=== PATIENT | female | born 1960 | race Asian ===

== ENCOUNTER 2017-09-05 19:06 | Emergency (ER) | payer BC, OTHER ==
[2017-09-05 19:24] VITALS: BP 144/70; PULSE 61; TEMP 98.1; BMI 24.4
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
[2017-09-05] MEDS ORDERED: IBUPROFEN 400 MG TABLET (FP) PO ONE ×2 (20:35→20:39)
== END 2017-09-05 22:55 | disposition home or self-care (01) ==
LOC: JER 19:06
DX: G44.319 Acute post-traumatic headache, not intractable (principal); I10 Essential (primary) hypertension; E11.9 Type 2 diabetes mellitus without complications; E78.00 Pure hypercholesterolemia, unspecified
CPT/HCPCS: 70450-TC; 70486-TC; 99281-25

== ENCOUNTER 2024-08-09 04:11 | Day surgery (SDC) | payer BC ==
[2024-08-07 11:55] VITALS: BMI 26.5
[2024-08-09 09:36] VITALS: TEMP 97.8
[2024-08-09 10:17] VITALS: BP 150/67; PULSE 59; RESP 18
== END 2024-08-09 10:26 | disposition home or self-care (01) ==
LOC: JASU-ENDO 04:11
PROVIDERS: ATTEND Internal Medicine Gastroenterology
PROC: 0DB98ZX Excision of Duodenum, Via Natural or Artificial Opening Endoscopic, Diagnostic (ICD-10-PCS; 2024-08-09)
PROC: 0DB78ZX Excision of Stomach, Pylorus, Via Natural or Artificial Opening Endoscopic, Diagnostic (ICD-10-PCS; 2024-08-09)
PROC: 0DB68ZX Excision of Stomach, Via Natural or Artificial Opening Endoscopic, Diagnostic (ICD-10-PCS; 2024-08-09)
PROC: 0DB48ZX Excision of Esophagogastric Junction, Via Natural or Artificial Opening Endoscopic, Diagnostic (ICD-10-PCS; 2024-08-09)
PROC: 0DJD8ZZ Inspection of Lower Intestinal Tract, Via Natural or Artificial Opening Endoscopic (ICD-10-PCS; principal; 2024-08-09 09:00)
DX: Z12.11 Encounter for screening for malignant neoplasm of colon (principal); Z86.010 Personal history of colon polyps; K21.00 Gastro-esophageal reflux disease with esophagitis, without bleeding; K29.50 Unspecified chronic gastritis without bleeding; R12 Heartburn
CPT/HCPCS: 82962; 88305-TC; 88342-TC